=== PATIENT | female | born 1950 | race Caucasian/White ===

== ENCOUNTER 2017-05-21 11:12 | Emergency (ER) | payer OTHER, MEDICARE ==
[2017-05-21 11:19] VITALS: TEMP 97.8; BMI 28.8
--- NOTE | 2017-05-21 12:20 | PDOC ---
History of Present Illness - General History Source: Patient Exam Limitations: No Limitations - History of Present Illness Initial Comments: 05/21/17 18:49 Patient is a 67 year old female with a significant past medical history of hyperlipidemia who presents to the ED with hypertension. Patient states that she was at the ENT doctor today and was noted to have 172/86 BP. Patient stopped at Dr. Belcher office and was told by the staff that he was in the hospital and she should be evaluated in the ED where he can see her. Patient was seen by ENT last week for a bump on her neck and was dx with saliadenitis and was dc home on prednisone and abx. Patient states that the day she presented to the urgent care her BP was 188. She denies any prior hx of blood pressure. She states that she was last evaluated in March by her PCP. She denies any dizziness, numbness/weakness/tingling, double vision, cp, SOB, nausea, vomiting, abd pain, back pain, neck pain or urinary symptoms. PCP - Dr. Jori Monae at [facility] [employer] - Dr. Lang <Tiffany Edwards - Last Filed: 05/21/17 18:49> - General History Source: Patient <Raad De La Rosa - Last Filed: 05/21/17 20:47> - General Chief Complaint: Blood Pressure Problem Stated Complaint: ELEVATED BP Time Seen by Provider: 05/21/17 11:50 Past History <Tiffany Edwards - Last Filed: 05/21/17 18:49> - Past Medical History Hypercholesterolemia: Yes - Surgical History Cholecystectomy: Yes - Psycho/Social/Smoking Cessation Hx Anxiety: No Suicidal Ideation: No Smoking History: Former smoker Have you smoked in the past 12 months: No If you are a former smoker, when did you quit?: 10 YRS Information on smoking cessation initiated: No Hx Alcohol Use: Yes (SOCIAL) Drug/Substance Use Hx: No Substance Use Type: None <Raad De La Rosa - Last Filed: 05/21/17 20:47> - Past Medical History Allergies/Adverse Reactions: Allergies Allergy/AdvReac Type Severity Reaction Status Date / Time No Known Allergies Allergy Verified 05/21/17 11:19 Home Medications: Ambulatory Orders Amlodipine Besylate [Norvasc -] 2.5 mg PO DAILY #14 tablet 05/21/17 Amoxicillin/Potassium Clav [Augmentin 875-125 Tablet] 1 each PO BID 05/21/17 Ascorbic Acid [Vitamin C] 500 mg PO DAILY 05/21/17 Aspirin [ASA -] 81 mg PO DAILY 05/21/17 Atorvastatin Ca [Lipitor] 20 mg PO DAILY 05/21/17 Citalopram Hydrobromide [Citalopram HBr] 5 mg PO DAILY 05/21/17 Multivit-Min/FA/Lycopen/Lutein [Centrum Silver Tablet] 1 each PO DAILY 05/21/17 Prednisone [Deltasone -] 20 mg PO DAILY 05/21/17 Review of Systems - Review of Systems Able to Perform ROS?: Yes Comments:: 05/21/17 18:50 CONSTITUTIONAL: No reported: Fever, Chills, Diaphoresis, Generalized Weakness, Malaise, Loss of Appetite HEENT: No reported: Rhinorrhea, Nasal Congestion, Throat Pain, Throat Swelling, Difficulty Swallowing, Mouth Swelling, Ear Pain, Eye Pain, Visual Changes CARDIOVASCULAR: No reported: Chest Pain, Syncope, Palpitations, Irregular Heart Rate, Lightheadedness, Peripheral Edema RESPIRATORY: No reported: Cough, Shortness of Breath, SOB with Exertion, Orthopnea, Wheezing , Stridor, Hemoptysis GASTROINTESTINAL: No reported: Abdominal pain, Abdominal Distension, Nausea, Vomiting, Diarrhea, Constipation, Melena, Hematochezia GENITOURINARY: No reported: Dysuria, Frequency, Urgency, Hesitancy, Flank Pain, Genital Pain MUSCULOSKELETAL: No reported: Myalgia, Arthralgia, Joint Swelling, Back pain, Neck Pain SKIN: No reported: Rash, Itching, Pallor HEMEATOLOGIC/IMMUNOLOGIC: No reported: Easy Bleeding, Easy Bruising, Lymphadenopathy, Frequent infections ENDOCRINE: No reported: Unexplained Weight Gain, Unexplained Weight Loss, Heat Intolerance , Cold Intolerance NEUROLOGIC: No reported: Headache, Focal Weakness, Paresthesias, Vertigo, Lightheadedness, Unsteady Gait, Seizure, Mental Status Changes, Incontinence PSYCHIATRIC: No reported: Anxiety, Depression <Tiffany Edwards - Last Filed: 05/21/17 18:49> *Physical Exam - Vital Signs Last Vital Signs Temp Pulse Resp BP Pulse Ox 97.8 F 77 20 174/84 98 05/21/17 11:15 05/21/17 14:12 05/21/17 14:12 05/21/17 14:12 05/21/17 14:12 - Physical Exam Comments: 05/21/17 18:50 GENERAL: The patient is awake, alert, and fully oriented, Nontoxic - in no acute distress. HEAD: Normocephalic, atraumatic. EYES: extraocular movements intact, sclera anicteric, conjunctiva clear. ENT: Normal voice, Moist mucous membranes. NECK: Normal range of motion, supple, small palpable mass on the R submandibular region, LUNGS: Breath sounds equal, clear to auscultation bilaterally. No wheezes, no rhonchi, no rales. HEART: Regular rate and rhythm, without murmur, rub or gallop. ABDOMEN: Soft, nontender, normoactive bowel sounds. No guarding, no rebound.No CVA tenderness EXTREMITIES: Normal range of motion, no edema. No clubbing or cyanosis. No cords, erythema, or tenderness. NEUROLOGICAL: No facial assymetry, Normal speech, PSYCH: Normal mood, normal affect. SKIN: Warm, Dry, normal turgor <Tiffany Edwards - Last Filed: 05/21/17 18:49> - Vital Signs Last Vital Signs Temp Pulse Resp BP Pulse Ox 97.8 F 78 20 187/105 97 05/21/17 11:15 05/21/17 11:15 05/21/17 11:15 05/21/17 11:15 05/21/17 11:15 <Raad De La Rosa - Last Filed: 05/21/17 20:47> Heart Score/ECG Review - ECG Impressions Comment:: 05/21/17 20:44 Twelve-lead EKG was performed and reviewed by me. There is normal sinus rhythm with a normal rate. Rate of 66 The axis is normal. The intervals are normal. There is normal R wave progression T wave inversion in V1 through V3 <Raad De La Rosa - Last Filed: 05/21/17 20:47> ED Treatment Course - LABORATORY CBC & Chemistry Diagram: 05/21/17 12:32 05/21/17 12:32 - ADDITIONAL ORDERS Additional order review: Laboratory Results 05/21/17 12:32 Sodium 139 Potassium 4.3 Chloride 101 Carbon Dioxide 32 Anion Gap 6 L BUN 17 Creatinine 0.6 Creat Clearance w eGFR > 60 Random Glucose 110 H Calcium 9.3 Total Bilirubin 0.6 AST 18 ALT 37 Alkaline Phosphatase 124 H Total Protein 6.9 Albumin 3.9 05/21/17 12:32 RBC 5.04 MCV 91.5 MCHC 33.6 RDW 12.9 MPV 8.3 Neutrophils % 81.4 Lymphocytes % 13.6 Monocytes % 4.7 Eosinophils % 0.1 Basophils % 0.2 - Medications Given in the ED: ED Medications Discontinued Medications Generic Name Dose Route Start Last Admin Trade Name Slim PRN Reason Stop Dose Admin Amlodipine Besylate 2.5 mg 05/21/17 14:09 05/21/17 14:11 Norvasc - PO 05/21/17 14:10 2.5 mg ONCE ONE Administration <Tiffany Edwards - Last Filed: 05/21/17 18:49> - LABORATORY CBC & Chemistry Diagram: 05/21/17 12:32 05/21/17 12:32 <Raad De La Rosa - Last Filed: 05/21/17 20:47> Medical Decision Making - Medical Decision Making 05/21/17 12:16 67y F hx HL, recent dx of sialiadenitis presents with htn, pt has no prior history of htn, was being evaluated for saliadenitis at ENT who noticed she was hypertensive, referred her to her overseer kosher kitchen, who was not in the office so she came to the ED. The pt denies any complaints. Will ck basic labs will see if her bp comes down on its own suspect stress of her currently disease and prednisone may be causing her elevated BP will notify her PMD and dw her overseer kosher kitchen 05/21/17 14:06 The pts labs unremarkble dw dr. grant - recmomends starting on 2.5 of norvas will dc the pt to fu with pmd / dr. michaels as outpatient. I discussed the physical exam findings, ancillary test results and final diagnoses with the patient. I answered all of the patient's questions. The patient was satisfied with the care received and felt comfortable with the discharge plan and treatment plan. The patient will call their primary care physician within 24 hours to arrange follow-up and will return to the Emergency Department with any new, persistent or worsening symptoms. <Raad De La Rosa - Last Filed: 05/21/17 20:47> *DC/Admit/Observation/Transfer - Attestations Scribe Attestion: 05/21/17 18:39 Documentation prepared by JOCELYNN Nazario, acting as medical cost consultant for Raad De La Rosa MD. <Tiffany Edwards - Last Filed: 05/21/17 18:49> - Discharge Dispostion Admit: No <Raad De La Rosa - Last Filed: 05/21/17 20:47> Diagnosis at time of Disposition: Hypertension Qualifiers: Hypertension type: essential hypertension Qualified Code(s): I10 - Essential ( primary) hypertension - Discharge Dispostion Disposition: HOME Condition at time of disposition: Stable - Prescriptions Prescriptions: Amlodipine Besylate [Norvasc -] 2.5 mg PO DAILY #14 tablet - Referrals Referrals: Jori Monae [Primary Care Provider] - Carlos Belcher MD [Staff Physician] - - Patient Instructions Printed Discharge Instructions: DI for High Blood Pressure, How to Monitor Your Blood Pressure at Home Additional Instructions: Return to the emergency department immediately with ANY new, persistent or worsening symptoms including any chest pain, dizziness, shrotness of breath, or any other concerns. You MUST call and follow up with your overseer kosher kitchen or primary care doctor in 3- 4 days for further evaluation of your symptoms. Results were discussed with you. Please make sure your doctor reviews the results of your emergency evaluation. Print Language: PAP[place]
[2017-05-21 13:10] LABS: BASOPHIL 0.2 % (0-2.0); EOSINOPHIL 0.1 % (0-4.5); MCH 30.7 pg (25.7-33.7); MCHC 33.6 g/dl (32.0-36.0); MEAN CELL VOLUME 91.5 fl (80-96); MEAN PLT VOLUME 8.3 fl (7.5-11.1); NEUTROPHILS 81.4 % (42.8-82.8); PLATELET COUNT 232 K/MM3 (134-434); RDW 12.9 % (11.6-15.6); WHITE BLOOD COUNT 10.1 K/mm3 (4.0-10.0)
[2017-05-21 13:29] LABS: ALBUMIN 3.9 g/dl (3.4-5.0); ALK PHOS 124 U/L (45-117); ANION GAP 6 (8-16); BILIRUBIN,TOTAL 0.6 mg/dL (0.2-1.0); CALCIUM 9.3 mg/dL (8.5-10.1); CO2 32 mmol/L (21-32); CREATININE 0.6 mg/dL (0.55-1.02); GLUCOSE,RANDOM 110 mg/dL (74-106); SGPT/ALT 37 U/L (12-78); TOT PROT 6.9 g/dl (6.4-8.2)
[2017-05-21 13:30] LABS: SGOT/AST 18 U/L (15-37)
--- NOTE | 2017-05-21 13:42 | CON.CARD ---
Consult - History of Present Illness Chief Complaint: high BP History of Present Illness: 67y F hx HL, recent dx of sialiadenitis presents with htn, pt has no prior history of htn, was being evaluated for saliadenitis at ENT who noticed she was hypertensive, referred her to her pet care assistant, who was not in the office so she came to the ED. The pt denies any complaints. - History Source History Provided By: Patient, Family Member, Medical Record - Past Medical History Cardio/Vascular: Yes: Hyperlipdemia - Alcohol/Substance Use Hx Alcohol Use: Yes (SOCIAL) - Smoking History Smoking history: Former smoker Have you smoked in the past 12 months: No If you are a former smoker, when did you quit?: 10 YRS Home Medications - Allergies Allergies/Adverse Reactions: Allergies Allergy/AdvReac Type Severity Reaction Status Date / Time No Known Allergies Allergy Verified 05/21/17 11:19 - Home Medications Home Medications: Ambulatory Orders Amoxicillin/Potassium Clav [Augmentin 875-125 Tablet] 1 each PO BID 05/21/17 Ascorbic Acid [Vitamin C] 500 mg PO DAILY 05/21/17 Aspirin [ASA -] 81 mg PO DAILY 05/21/17 Atorvastatin Ca [Lipitor] 20 mg PO DAILY 05/21/17 Citalopram Hydrobromide [Citalopram HBr] 5 mg PO DAILY 05/21/17 Multivit-Min/FA/Lycopen/Lutein [Centrum Silver Tablet] 1 each PO DAILY 05/21/17 Prednisone [Deltasone -] 20 mg PO DAILY 05/21/17 Review of Systems - Review of Systems Constitutional: reports: No Symptoms Eyes: reports: No Symptoms HENT: reports: No Symptoms Neck: reports: No Symptoms Cardiovascular: reports: No Symptoms Gastrointestinal: reports: No Symptoms Genitourinary: reports: No Symptoms Breasts: reports: No Symptoms Reported Musculoskeletal: reports: No Symptoms Integumentary: reports: No Symptoms Neurological: reports: No Symptoms Endocrine: reports: No Symptoms Hematology/Lymphatic: reports: No Symptoms Psychiatric: reports: No Symptoms Vital Signs: Vital Signs Temperature 97.8 F 05/21/17 11:15 Pulse Rate 78 05/21/17 11:15 Respiratory Rate 20 05/21/17 11:15 Blood Pressure 187/105 05/21/17 11:15 O2 Sat by Pulse Oximetry (%) 97 05/21/17 11:15 - Other Data Labs, Other Data: CBC, BMP 05/21/17 12:32 05/21/17 12:32 Imaging - Results EKG: Image Reviewed (sr wnl) Assessment/Plan hlp new onset htn during steroid taper /use ENT plan norvasc 2.5 qd bp check tmr with PMDI will see the patient on FridayMay 23 for f/u
[2017-05-21] MEDS ORDERED: amLODIPine BESYLATE 2.5 MG TABLET (FP) PO ONE (14:09)
[2017-05-21] MEDS ORDERED: amLODIPine BESYLATE 5 MG TABLET (FP) ONE (14:09)
[2017-05-21 14:12] VITALS: BP 174/84; PULSE 77
--- NOTE | 2017-05-22 11:10 | EKG ---
Test Reason : Blood Pressure : / mmHG Vent. Rate : 066 BPM Atrial Rate : 066 BPM P-R Int : 126 ms QRS Dur : 086 ms QT Int : 394 ms P-R-T Axes : 023 038 022 degrees QTc Int : 413 ms NORMAL SINUS RHYTHM T WAVE ABNORMALITY, CONSIDER ANTERIOR ISCHEMIA ABNORMAL ECG NO PREVIOUS ECGS AVAILABLE Confirmed by CHUY FORDE, SYLVIA ([id number]) on 05/22/2017 11:10:18 AM Referred By: Confirmed By:SYLVIA VERA MD
== END 2017-05-21 14:12 | disposition home or self-care (01) ==
LOC: JER 11:12
DX: I10 Essential (primary) hypertension (principal)
CPT/HCPCS: 36415; 80053; 85025; 93005; 93010; 99282-25

== ENCOUNTER 2023-11-13 04:21 | Day surgery (SDC) | payer OTHER, MEDICARE ==
[2023-11-13 09:18] VITALS: BMI 27.3
[2023-11-13 10:34] VITALS: TEMP 97.3
[2023-11-13 11:11] VITALS: PULSE 71
[2023-11-13 11:13] VITALS: BP 127/67; RESP 15
== END 2023-11-13 11:20 | disposition home or self-care (01) ==
LOC: JASU-ENDO 04:21
PROVIDERS: ATTEND Internal Medicine Gastroenterology
PROC: 0DBK8ZX Excision of Ascending Colon, Via Natural or Artificial Opening Endoscopic, Diagnostic (ICD-10-PCS; 2023-11-13)
PROC: 0DB68ZX Excision of Stomach, Via Natural or Artificial Opening Endoscopic, Diagnostic (ICD-10-PCS; 2023-11-13)
PROC: 0DB78ZX Excision of Stomach, Pylorus, Via Natural or Artificial Opening Endoscopic, Diagnostic (ICD-10-PCS; 2023-11-13)
PROC: 0DBL8ZX Excision of Transverse Colon, Via Natural or Artificial Opening Endoscopic, Diagnostic (ICD-10-PCS; principal; 2023-11-13 09:30)
DX: Z12.11 Encounter for screening for malignant neoplasm of colon (principal); D12.2 Benign neoplasm of ascending colon; D12.3 Benign neoplasm of transverse colon; K29.50 Unspecified chronic gastritis without bleeding; K55.20 Angiodysplasia of colon without hemorrhage; Z86.010 Personal history of colon polyps
CPT/HCPCS: 88305-TC; 88342-TC